=== PATIENT | female | born 1980 | race American Indian/Alaskan Native ===

== ENCOUNTER 2018-05-18 10:05 | Outpatient (CLI) | payer OTHER | END 2018-05-18 14:39 | disposition home or self-care (01) | LOC: OBS/DEL 10:05 | DX: O14.93 Unspecified pre-eclampsia, third trimester (principal); Z34.03 Encounter for supervision of normal first pregnancy, third trimester ==

== ENCOUNTER 2018-05-31 15:05 | Inpatient (IN) | payer OTHER ==
[~2018-05-31] VITALS: Ht 167.6 cm; Wt 82.6 kg
[2018-05-31] MEDS ORDERED: ASA81 MG PO (16:55)
[2018-05-31] MEDS ORDERED: PRENATAL 19 TA1 EACH PO (16:55)
== END 2018-06-10 13:11 | DRG 781 ==
LOC: LDR 15:05 → OB/GYN 06-02 08:12
PROC: 4A1HXCZ Monitoring of Products of Conception, Cardiac Rate, External Approach (ICD-10-PCS; principal; 2018-05-31)
PROC: BY4FZZZ Ultrasonography of Third Trimester, Single Fetus (ICD-10-PCS; 2018-06-01)
PROC: BY4FZZZ Ultrasonography of Third Trimester, Single Fetus (ICD-10-PCS; 2018-06-07)
DX: O14.03 Mild to moderate pre-eclampsia, third trimester (principal); O60.03 Preterm labor without delivery, third trimester

== ENCOUNTER 2018-06-22 10:21 | Inpatient (IN) | payer OTHER ==
[~2018-06-22] VITALS: Ht 167.6 cm; Wt 79.8 kg
[~2018-06-22 10:21] MED LIST: ASA81 MG PO; PRENATAL 19 TA1 EACH PO
== END 2018-06-23 14:18 | disposition home or self-care (01) | DRG 781 ==
LOC: LDR 10:21
PROC: 4A1HXCZ Monitoring of Products of Conception, Cardiac Rate, External Approach (ICD-10-PCS; principal; 2018-06-22)
DX: O11.3 Pre-existing hypertension with pre-eclampsia, third trimester (principal); O10.013 Pre-existing essential hypertension complicating pregnancy, third trimester

== ENCOUNTER 2018-06-28 11:12 | Outpatient (CLI) | payer OTHER ==
[2018-06-29] MEDS ORDERED: PRENATAL TABLE1 EAC4 PO (09:13)
== END 2018-06-29 14:40 | disposition home or self-care (01) ==
LOC: OBS/DEL 11:12
DX: O11.3 Pre-existing hypertension with pre-eclampsia, third trimester (principal); Z34.83 Encounter for supervision of other normal pregnancy, third trimester

== ENCOUNTER 2018-06-29 15:37 | Inpatient (IN) | payer OTHER ==
[~2018-06-29] VITALS: Ht 167.6 cm; Wt 1.8 kg
[~2018-06-29 15:37] MED LIST changes: +PRENATAL TABLE1 EAC4 PO
[2018-07-05] MEDS ORDERED: NABUMETONE750 MG PO (09:01)
== END 2018-07-05 12:02 | DRG 783 ==
LOC: OB/GYN 07-02 06:36 → O/R 07-02 06:36 → OB/GYN 07-02 07:00
PROVIDERS: Obstetrics & Gynecology
PROC: 0UB70ZZ Excision of Bilateral Fallopian Tubes, Open Approach (ICD-10-PCS; 2018-07-02)
PROC: 4A1HXCZ Monitoring of Products of Conception, Cardiac Rate, External Approach (ICD-10-PCS; 2018-07-02)
PROC: 4A033R1 Measurement of Arterial Saturation, Peripheral, Percutaneous Approach (ICD-10-PCS; 2018-07-02)
PROC: 10D00Z1 Extraction of Products of Conception, Low, Open Approach (ICD-10-PCS; principal; 2018-07-02 07:00)
DX: O32.2XX0 Maternal care for transverse and oblique lie, not applicable or unspecified (principal); O11.3 Pre-existing hypertension with pre-eclampsia, third trimester; O36.5930 Maternal care for other known or suspected poor fetal growth, third trimester, not applicable or unspecified; Z3A.37 37 weeks gestation of pregnancy; Z37.0 Single live birth; Z30.2 Encounter for sterilization